=== PATIENT | female | born 1960 | race Caucasian/White ===

== ENCOUNTER → 2024-02-05 11:04 | Outpatient (CLI) | payer OTHER, SELFPAY ==
[2024-02-05 19:16] LABS: HEMOLYSIS < 15 (0-50); Iron 52 ug/dL (37-170)
[2024-02-05 19:28] LABS: Add Manual Diff / Slide Review NO; Basophils Absolute Auto 0 /uL (0-100); Basophils Percent Auto 0.2 % (0-2); Eosinophils Absolute Auto 0 /uL (0-450); Eosinophils Percent Auto 0.7 % (2-4); Hematocrit 36.5 % (36-46); Hemoglobin 12.2 g/dL (12.0-16.0); Lymphocytes Absolute Auto 1600 /uL (1100-4500); Lymphocytes Percent Auto 30.5 % (25-40); Mean Corpuscular HGB Conc 33.6 % (30-36); Mean Corpuscular Volume 80.4 fL (80-100); Monocytes Absolute Auto 300 /uL (0-900); Monocytes Percent Auto 4.9 % (3-14); Neutrophils Absolute Auto 3400 /uL (1500-7000); Neutrophils Percent Auto 63.7 % (50-75); Platelet Count 248 X10^3/uL (150-400); Red Blood Cell Count 4.53 X10^6/uL (4.0-5.2); Red Cell Distribution Width 17.2 % (11.6-14.8); White Blood Cell Count 5.4 X10^3/uL (4.5-11.0)
[2024-02-05 19:29] LABS: Cholesterol 196 mg/dL (140-199); HDL Cholesterol 47 mg/dL (40-60); LDL Cholesterol Calculated 121 mg/dL (<100); Triglycerides 141 mg/dL (35-150)
[2024-02-05 19:31] LABS: Hemoglobin A1C% w Est Avg Glu 6.1 % (4.0-6.0)
[2024-02-05 19:34] LABS: Percent Iron Saturation 12 % (15-50); Total Iron Binding Capacity 432 ug/dL (265-497); Transferrin 327 mg/dL (206-381)
[2024-02-05 19:58] LABS: Ferritin 8 ng/mL (11-264)
[2024-02-05 20:13] LABS: Vitamin B12 427 pg/mL (239-931)
[2024-02-06 06:10] LABS: Fecal Immunochemical Test Positive (Negative)
== END ==
PROVIDERS: PCP Family Medicine; Visit Provider Family Medicine
DX: E78.5 Hyperlipidemia, unspecified (principal); R73.09 Other abnormal glucose; D64.9 Anemia, unspecified; F17.210 Nicotine dependence, cigarettes, uncomplicated; Z78.9 Other specified health status
CPT/HCPCS: 80061; 82274; 82607; 82728; 83036; 83540; 83550; 85025

== ENCOUNTER → 2024-02-26 11:16 | Outpatient (CLI) | payer OTHER, SELFPAY ==
--- NOTE | 2024-02-26 11:17 | DI.CT.S_ITS ---
PROCEDURE: CT LUNG LOW DOSE SCREENING INDICATIONS: Nicotine dependence, cigarettes TECHNIQUE: Noncontrast 2.0-2.5 mm thick sections acquired from the pulmonary apices to the posterior costophrenic angles. 7 mm thick axial MIP, and 5 mm coronal and sagittal reformats were then acquired. For radiation dose reduction, the following was used: automated exposure control, adjustment of mA and/or kV according to patient size. COMPARISON: None. FINDINGS: Image quality: Diagnostic. Lower Neck: No enlarged lymph nodes. Thyroid: Heterogeneous and enlarged left thyroid lobe. Axillae: No enlarged lymph nodes. Chest Wall: Unremarkable. Bones: Exaggerated kyphosis at T11-12. Lungs and Pleura: No pneumothorax or pleural effusions. Multiple solid pulmonary micro nodules are present. Largest measures 2 millimeters in the right upper lobe (series 3, image 79). Heart: Heart size is normal. No pericardial effusion. Three-vessel coronary calcifications. Thoracic Vessels: Dilated ascending aorta measuring 4.3 centimeter. Mediastinum and Erika: No enlarged lymph nodes. Esophagus: No wall thickening. No hiatal hernia. Upper Abdomen: Visualized upper abdomen solid organs and bowel loops appear normal. IMPRESSION: No suspicious pulmonary nodules. LUNG-RADS 2; continued annual screening, if eligible. Clinically Significant Non-pulmonary Findings: -dilated ascending aortic aneurysm measuring 4.3 centimeter. Yearly surveillance is recommended. This surveillance can be performed during these exams. -enlarged, left thyroid lobe which is heterogeneous. Underlying nodules not excluded. Recommend ultrasound if not performed in the past. Dictated by: Dakota Casas M.D. on 02/26/2024 at 13:39 Approved by: Dakota Casas M.D. on 02/26/2024 at 13:46
--- NOTE | 2024-02-26 11:17 | DI.MG.S_ITS ---
BILATERAL DIGITAL SCREENING MAMMOGRAM 3D/2D WITH CAD: 02/26/2024 CLINICAL: Routine screening. Comparison is made to exams dated: 07/10/2022 mammogram - [facility], 10/02/2016 mammogram - [facility], and 12/11/2006 mammogram - [facility]. There are scattered areas of fibroglandular density in both breasts (category b / 25%-50% glandular tissue). Current study was also evaluated with a Computer Aided Detection (CAD) system. No significant masses, calcifications, or other findings are seen in either breast. There has been no significant interval change. IMPRESSION: NEGATIVE There is no mammographic evidence of malignancy. A 1 year screening mammogram is recommended. Based on the Tyrer Cuzick model (a risk assessment model) the patient's lifetime risk is 7.6% and her 10 year risk is 3.5%. According to the ACR, ACS, and NCCN guidelines, an annual breast MRI exam along with mammogram is recommended if the patient's lifetime risk is 20% or greater. This exam was interpreted at Station ID: [id number]. NOTE: For mammograms, a report in lay terms will be sent to the patient. Approximately 15% of breast malignancies will not be visualized mammographically. In the management of a palpable breast mass, a negative mammogram must not discourage biopsy of a clinically suspicious lesion. Electronically Signed By: Josh connolly/danya:02/26/2024 18:07:16 letter sent: Normal Exam ACR BI-RADS Category 1: Negative 3341F
== END ==
PROVIDERS: PCP Family Medicine; Referring Provider Family Medicine; Visit Provider Family Medicine
DX: Z12.31 Encounter for screening mammogram for malignant neoplasm of breast (principal); R92.323 Mammographic fibroglandular density, bilateral breasts; F17.210 Nicotine dependence, cigarettes, uncomplicated; Z12.2 Encounter for screening for malignant neoplasm of respiratory organs; R91.8 Other nonspecific abnormal finding of lung field; I71.21 Aneurysm of the ascending aorta, without rupture; I25.10 Atherosclerotic heart disease of native coronary artery without angina pectoris; E04.9 Nontoxic goiter, unspecified
CPT/HCPCS: 71271; 77063; 77067

== ENCOUNTER 2024-06-03 11:43 | Day surgery (SDC) | payer BC, SELFPAY ==
--- NOTE | 2024-06-03 | PATH_ITS ---
[facility] Accession Number: [id number] No. of containers..02 Tissue . 01 Material submitted: . PART A: colon - DESCENDING COLON POLYP PART B: colon - TRANSVERSE COLON POLYP X2 . 01 Diagnosis: Part A: DESCENDING COLON POLYP: Tubular adenoma. . Part B: TRANSVERSE COLON POLYP X2: Tubular adenomas. STO 06/05/2024 1520 Local . 01 Electronically signed: . Martin Chavis MD, Pathologist NPI- [id number] . 01 Gross description: . A. Received in formalin with two patient identifiers and descending colon, is a single noble to brown soft tissue fragment, 0.3 cm in greatest dimension. Submitted in A1. . B. Received in formalin with two patient identifiers and transverse colon polyp x2, are three noble soft tissue fragments ranging from 0.4 x 0.2 x 0.2 cm to 1.2 x 0.9 x 0.5 cm. The largest fragment is inked and sectioned. All submitted in B1. ([id number]) /MRV 06/05/2024 1520 Local . 01 Pathologist provided ICD-10: D12.3, D12.4 . 01 CPT . 239414, 231681 Specimen Comment: A courtesy copy of this report has been sent to [phone] Performed at: [address] [id number] MD Martin Chavis MD Phone: [phone]
[2024-06-03 12:35] VITALS: BP 154/97; PULSE 59; RESP 16; TEMP 36.4; O2SAT 100
[2024-06-03] MEDS: LACTATED RINGERS 1,000 ML 42 ML IV (12:47)
--- NOTE | 2024-06-03 12:59 | P.HP_ITS ---
History of Present Illness History of Present Illness Date Patient Seen: 06/03/24 Time Patient Seen: 12:59 Chief complaint: SDC Narrative: 63-year-old woman with a occasional bright red blood per rectum with a positive fecal immunochemical test here for diagnostic colonoscopy. No abdominal pain. No family history of colon cancer. 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 04/18/2022 FHX: no colon, lung, breast uncle passed from pancreatic cancer GF throat cancer -- cigars, alcohol 03/23/2022 @ [facility] TC: 236, TG 183, HDL 52, LDL 147 nl BG, nl GFR A1C 6% B12 309 CBC nl FHX: AR, CVA neg 12/2023 Meds Home Medications and Allergies Home Medications Medication Instructions Recorded Confirmed Type No Known Home Medications 06/03/24 06/03/24 History Allergies Allergy/AdvReac Type Severity Reaction Status Date / Time No Known Allergies Allergy Unknown Verified 02/19/24 12:03 Exam Vital Signs (past 8 hours): - 06/03/24 12:35 Temperature 97.5 F L Pulse Rate 59 L Respiratory Rate 16 Blood Pressure 154/97 H Pulse Oximetry 100 Oxygen Delivery Method Room Air Oxygen Delivery Method Room Air Narrative Exam Narrative: General adult woman alert oriented no acute distress Chest nonlabored respiration Extremities warm well perfused Assessment & Plan Assessment and plan (1) Positive FIT (fecal immunochemical test): Status: Acute Assessment & Plan narrative: Diagnostic colonoscopy indicated. Technical details were discussed. Risks, benefits, alternatives explained. Risks including but not limited to myocardial infarction, aspiration, bleeding, pain, missed lesion, incomplete examination, need for further radiographic studies, intestinal injury, and need for major abdominal surgery were discussed. All questions were answered to their satisfaction, and they are in agreement with this plan. Time-Based Coding :: [TOTAL MINUTES] spent with patient and on the chart (including review of chart, obtaining history, exam, reviewing outside data, placing orders, documenting exam and treatment plan, and counseling patient) on [DATE].
[2024-06-03 13:26] VITALS: BP 142/87; PULSE 65; RESP 16; TEMP 35.9; O2SAT 96
[2024-06-03 13:32] VITALS: BP 146/86; PULSE 65; RESP 18; O2SAT 98
--- NOTE | 2024-06-03 13:33 | P.OP.COLON_ITS ---
Operative Date/Time/Diagnoses Date of procedure: 06/03/24 Time of procedure: 13:33 Pre-op diagnosis: Positive fecal immunochemical test Post-op diagnosis: other (Colonic polyp x3) Procedure & Clinicians Study performed: Colonoscopy and polypectomy Same procedure as scheduled: Yes Indications: Positive fecal immunochemical test Surgeon: Osman Sosa Procedure Notes Procedure in detail: The history and physical was performed/updated and the patient is ASA class is 2. The procedure was discussed in detail with the patient. Potential risks complications including infection, bleeding, missed diagnosis, perforation, need for surgery, and were explained. Their questions were answered and informed consent was obtained. Patient was brought to the procedure room and placed standard monitoring equipment. The patient's vital signs were monitored continuously throughout the entire procedure. Prior to starting time-out was performed. The patient was placed in the left lateral recumbent position. Procedural sedation was adminis tered by anesthesia. Examination began with a thorough inspection of the perianal area there was no evidence of fissures, fistulae, external hemorrhoids or cutaneous malignancy. The colonoscopy scope was then placed into the anal canal and was advanced to the cecum, which was identified by the ileocecal valve, the appendiceal orifice and the confluence of the taenia. The scope was then slowly withdrawn examining colon thoroughly in all directions, irrigating it of any residual stool. The scope was retroflexed within the rectum The patient tolerated the procedure well. They will be discharged once criteria are met. The prep was of good/excellent quality. The withdrawl time was 10 minutes. FINDINGS * Descending colon polyp 5 mm removed with cold snare * Transverse colon 2 polyps removed ranging from 5 mm to 1 cm in size removed in entirety with cold snare. * Diverticulosis of sigmoid colon * Internal hemorrhoids Specimen(s): other (Transverse colon polyps x2, descending colon polyp) Impression: Polyps x3 Post-procedure Plan for aftercare: Follow up dependent on pathology findings Disposition: same day surgery
[2024-06-03 13:38] VITALS: BP 136/93; PULSE 64; RESP 18; TEMP 36.1; O2SAT 98
[2024-06-03 13:43] VITALS: BP 137/98; PULSE 68; RESP 16; O2SAT 99
== END 2024-06-03 14:01 | disposition home or self-care (01) ==
PROVIDERS: PCP Family Medicine; Referring Provider Surgery; Visit Provider Surgery
PROC: 0DJD8ZZ Inspection of Lower Intestinal Tract, Via Natural or Artificial Opening Endoscopic (ICD-10-PCS; CPT 45378; principal; 2024-06-03 10:45)
DX: Z12.11 Encounter for screening for malignant neoplasm of colon (principal); R19.5 Other fecal abnormalities; K57.30 Diverticulosis of large intestine without perforation or abscess without bleeding; K64.8 Other hemorrhoids; D12.3 Benign neoplasm of transverse colon; D12.4 Benign neoplasm of descending colon
CPT/HCPCS: 45385; J2704